=== PATIENT | female | born 1970 | race Caucasian/White ===

== ENCOUNTER 2025-01-11 19:15 | Emergency (ER) | payer SELFPAY ==
[~2025-01-11] VITALS: Ht 149.9 cm; Wt 63.0 kg
[2025-01-11] MEDS ORDERED: IBUPROFEN 800 MG/TAB PO ONE (20:20)
[2025-01-11 20:47] VITALS: BP 140/93
== END 2025-01-11 20:47 | disposition home or self-care (01) | DRG 607 ==
LOC: ED 19:15
DX: B00.9 Herpesviral infection, unspecified (principal); Z59.01 Sheltered homelessness; I10 Essential (primary) hypertension; E11.9 Type 2 diabetes mellitus without complications; E78.5 Hyperlipidemia, unspecified; F17.210 Nicotine dependence, cigarettes, uncomplicated; Z88.0 Allergy status to penicillin